=== PATIENT | male | born 1940 | race Caucasian/White ===

== ENCOUNTER 2017-02-26 08:50 | Inpatient (IN) ==
[2017-02-17 18:11] LABS: Basophils # (Auto) 0 K/mcL (0.0-0.3); Basophils % (Auto) 0.3 % (0.0-2.0); Eosinophils # (Auto) 0.2 K/mcL (0.0-0.7); Eosinophils % (Auto) 3.5 % (0.0-7.0); Granulocytes % (Auto) 61.8 % (38.0-78.0); Lymphocytes # (Auto) 1.3 K/mcL (1.5-4.8); Lymphocytes % (Auto) 22.1 % (15.5-49.0); Mean Cell Volume 96.3 fL (80.0-100.0); Mean Corpuscular Hemoglobin 32.7 pg (26.0-34.0); Monocytes # (Auto) 0.7 K/mcL (0.1-0.9); Monocytes % (Auto) 12.3 % (1.0-12.0); Platelet Count 197 K/mcL (140-440); RBC 4.87 M/mcL (4.50-5.90); Red Cell Distribution Width 12.7 % (11.5-14.5)
[2017-02-17 18:18] LABS: Appearance,Urine CLEAR; Bilirubin,Urine NEG (NEG); Color,Urine YELLOW; Glucose,Urine (UA) NEGATIVE (NEG); Leukocyte Esterase,Urine NEG /uL (NEG); Nitrate,Urine NEG (NEG); Protein,Urine NEG (NEG); Specific Gravity,Urine 1.021 (1.000-1.035); Urine Blood NEG mg/dL (<0.03); Urobilinogen,Urine NEG (NEG)
[2017-02-17 18:30] LABS: Blood Urea Nitrogen 23 mg/dl (8-23)
[~2017-02-26 08:50] MED LIST: ACETAMINOPHEN 500 MG TABLET PO SCH; CELECOXIB 200 MG CAPSULE PO SCH; PREGABALIN 75 MG CAPSULE PO SCH; ceFAZolin 1 GM VIAL IV SCH
[2017-02-26] MEDS ORDERED: LIDOCAINE HCL/PF 100 MG/5 ML SYRINGE IV ONE (12:05)
[2017-02-26] MEDS ORDERED: fentaNYL 250 MCG/5 ML VIAL IV ONE (12:05)
[2017-02-26] MEDS ORDERED: ROPIVACAINE HCL/PF 20 ML VIAL IJ ONE (12:05)
[2017-02-26] MEDS ORDERED: KETAMINE 100 MG/ML ML IV ONE (12:05)
[2017-02-26] MEDS ORDERED: ONDANSETRON 4 MG/2 ML VIAL IV ONE (12:05)
[2017-02-26] MEDS ORDERED: MIDAZOLAM 2 MG/2 ML VIAL IV ONE (12:05)
[2017-02-26] MEDS ORDERED: DEXAMETHASONE 10 MG/ML VIAL IV ONE (12:05)
[2017-02-26] MEDS ORDERED: TRANEXAMIC ACID 1,000 MG/10 ML VIAL IV ONE ×2 (12:05→13:42)
[2017-02-26] MEDS ORDERED: GENTAMICIN SULFATE 800 MG/20 ML VIAL IR ONE (12:39)
[2017-02-26] MEDS ORDERED: HYDROmorphone 2 MG/ML SYRINGE IV PRN ×2 (13:24→13:42)
[2017-02-26] MEDS ORDERED: fentaNYL 100 MCG/2 ML VIAL IV PRN (13:24)
[2017-02-26] MEDS ORDERED: BENZOCAINE/MENTHOL 1 LOZENGE PO PRN ×2 (13:24→13:42)
[2017-02-26] MEDS ORDERED: ePHEDrine 50 MG/ML AMPUL IV PRN (13:24)
[2017-02-26] MEDS ORDERED: ONDANSETRON 4 MG/2 ML VIAL IV PRN ×2 (13:24→13:42)
[2017-02-26] MEDS ORDERED: FLUMAZENIL 0.1 MG/ML ML IV PRN (13:24)
[2017-02-26] MEDS ORDERED: MEPERIDINE 50 MG/ML SYRINGE IM PRN (13:24)
[2017-02-26] MEDS ORDERED: METHOCARBAMOL 1,000 MG/10 ML VIAL IV PRN (13:24)
[2017-02-26] MEDS ORDERED: PROMETHAZINE 25 MG/ML VIAL IM PRN (13:24)
[2017-02-26] MEDS ORDERED: IPRATROPIUM/ALBUTEROL 3 ML AMPUL.NEB NEB PRN (13:24)
[2017-02-26] MEDS ORDERED: PROMETHAZINE 25 MG/ML VIAL IV PRN (13:24)
[2017-02-26] MEDS ORDERED: MEPERIDINE 25 MG/ML SYRINGE IV PRN (13:24)
[2017-02-26] MEDS ORDERED: diphenhydrAMINE 50 MG/ML VIAL IV PRN (13:24)
[2017-02-26] MEDS ORDERED: LACTATED RINGERS 250 ML IV PRN (13:24)
[2017-02-26] MEDS ORDERED: NALOXONE HCL 0.4 MG/ML VIAL IV PRN (13:24)
[2017-02-26] MEDS ORDERED: LACTATED RINGERS 1,000 ML IV SCH (13:30)
[2017-02-26] MEDS ORDERED: POLYETHYLENE GLYCOL 3350 17 GM PACKET PO PRN (13:42)
[2017-02-26] MEDS ORDERED: BISACODYL 10 MG SUPP.RECT PR PRN (13:42)
[2017-02-26] MEDS ORDERED: ONDANSETRON ODT 4 MG TABLET SL PRN (13:42)
[2017-02-26] MEDS ORDERED: TEMAZEPAM 15 MG CAPSULE PO PRN (13:42)
[2017-02-26] MEDS ORDERED: FLEETS ADULT ENEMA PR PRN (13:42)
[2017-02-26] MEDS ORDERED: HYDROcodone/APAP 10/325MG TABLET PO PRN (13:42)
[2017-02-26] MEDS ORDERED: KETOROLAC 15 MG/ML VIAL IV PRN (13:42)
[2017-02-26] MEDS ORDERED: ACETAMINOPHEN 325 MG TABLET PO PRN (13:42)
[2017-02-26] MEDS ORDERED: MAGNESIUM HYDROXIDE 30 ML ORAL.SUSP PO PRN (13:42)
--- NOTE | 2017-02-26 13:42 | Brief Operative Note ---
Date of procedure: 02/26/17 Pre-op diagnosis: left shoulder severe djd and bicep tendonopathy Post-op diagnosis: same Procedure: left reverse tsa with bicep tenodesis Grafts/Implants: Yes Anesthesia: GETA Complications Description: 02/26/17 13:41 none Surgeon: Ulisses Silvestre Plan Examiner: Addison Colbert Estimated blood loss (cc): 60 Specimens Removed/Pathology: none sent Condition: stable Disposition: PACU
--- NOTE | 2017-02-26 15:01 | XRay Report ---
HISTORY: Reason for Exam:Post-Op Total Shoulder FINDINGS: There is a well-positioned reverse total shoulder prosthesis. No fracture is present. Arthritis is seen at the acromioclavicular joint. There is mild consolidation of lung parenchyma adjacent left diaphragm which may be atelectasis. IMPRESSION: Well-positioned left shoulder prosthesis Interpreted and Authenticated by: Sidney Smith 02/26/17
[2017-02-26] MEDS: 0.9 % SODIUM CHLORIDE 10 ML SYRINGE IV SCH (15:03)
--- NOTE | 2017-02-26 15:06 | Operative Note ---
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 PROCEDURE: Left reverse total shoulder with biceps tenodesis. SURGEON: Ulisses Silvestre M.D. INSURANCE CLERK: Addison Colbert PA-C. ANESTHESIA: General LMA anesthesia. COMPLICATIONS: None. DESCRIPTION OF PROCEDURE: The patient was brought to the operating room and put to sleep with general LMA anesthesia. Once asleep, the patient had the left arm sterilely prepped and draped in the usual sterile fashion. We confirmed this as the operative site. Preop antibiotics given. Tranexamic acid had been given. Once this was done, the patient had Ioban placed over the skin, and we made a deltopectoral approach on the left shoulder. The patient tolerated this well without complication. We then retracted the deltoid laterally with the cephalic vein. The patient was able to get good exposure. I did release the biceps tendon sheath. The patient then had this repaired to the pectoralis major with two [id number] sutures of #2 Ethibond. We then released the subscap medial to the lesser tuberosity soft tissue, and this was tagged and retracted medially. We then dislocated the humeral head and then released the capsule inferiorly to the humeral head and removed spurs. Once this was done, we then released the capsule up to about the 7 o'clock position. Once done, we then made our neck cut at the anatomical neck position. The patient then had this bony fragment removed. His humeral head was very large. Some of the cuff was still intact superiorly. We then subluxed the humerus posteriorly, performed a 360 degree capsule release around the glenoid, placed a pin centrally at a 10-degree inclination. This was reamed down to size. We irrigated thoroughly and then reamed up for a 40 glenosphere. The baseplate was placed with a central screw measuring 36 mm. Superior screw was 32. Inferior screw was 32, and the anterior superior screw was 40. All had excellent purchase. We then placed a 40 mm glenosphere with 6 mm of offset and 2 mm of eccentricity which was placed inferiorly and anteriorly. Once done, we then irrigated thoroughly and then prepared the humerus. This was reamed up to a size 14, trialed the 14 stem with a 4 mm poly. It was slightly loose. We then implanted a 14 stem with a size 6 mm poly, and this reduced very nicely with 1 mm of play with a shuck test. We irrigated thoroughly. We did not re-place the subscap because it would have been too tight. We released the anterior capsule from the subscap for better motion. We then irrigated thoroughly and then closed the deltopectoral interval with 2-0 vi, closed the skin with 2-0 Vicryl and adhesive closure. Sterile bandage was applied. A Donjoy sling fitted and given. RBH:radha Job ID: [id number] Doc ID: [id number] Ulisses Silvestre MD
[2017-02-26] MEDS: 0.45 % SODIUM CHLORIDE 1,000 ML IV SCH ×2 (15:08→23:53)
[2017-02-26] MEDS: DOCUSATE SODIUM 100 MG CAPSULE PO SCH (19:36)
[2017-02-26] MEDS: ceFAZolin 1 GM VIAL IV SCH (19:36)
[2017-02-26] MEDS ORDERED: SENNOSIDES 1 TABLET PO SCH (21:00)
[2017-02-27] MEDS: 0.9 % SODIUM CHLORIDE 10 ML SYRINGE IV SCH ×2 (00:48→05:37)
[2017-02-27] MEDS: ceFAZolin 1 GM VIAL IV SCH (04:44)
--- NOTE | 2017-02-27 07:41 | Orthopedic Progress Note ---
Subjective Patient information: Note initiated : 02/27/17 at 7:40 am Service Date, if different from initiated Date: [] Patient: Nolberto Sethi 76 y/o M admitted on 02/26/17 for Left Reverse Total Shoulder Arthroplasty with. Chief Complaint: [Pt is stable this morning on post operative day 1 without any significant concerns or complaints. Patients vital signs have remained stable. Patients dressing is dry and exhibits a grossly intact neurovascular and neuromotor exam. Patients 10 point ROS is otherwise negative. ] Objective Vital signs: Vital Signs Temp Pulse Pulse Resp BP BP Pulse Ox 02/27/17 07:32 91 H 94 02/27/17 03:00 98.4 F 88 20 138/80 94 02/27/17 00:00 98.3 F 96 H 20 134/79 92 02/26/17 20:00 97.9 F 101 H 20 130/81 94 02/26/17 16:57 97.8 F 18 163/93 95 02/26/17 16:27 152/92 94 02/26/17 16:13 150/57 97 02/26/17 15:57 157/98 95 02/26/17 15:42 150/99 95 02/26/17 15:28 132/88 94 02/26/17 15:13 144/86 94 02/26/17 14:57 156/83 93 02/26/17 14:39 97.6 F 64 15 140/87 94 02/26/17 14:26 64 16 138/78 96 02/26/17 14:20 64 14 117/72 97 02/26/17 14:14 65 13 109/71 97 02/26/17 14:10 63 12 121/72 97 02/26/17 14:05 63 13 119/75 97 02/26/17 13:59 97.6 F 63 16 105/76 96 02/26/17 09:13 96.7 F L 20 153/91 96 Intake and Output 02/26/17 02/27/17 02/27/17 21:59 05:59 13:59 Intake Total 684 / 684 1650 / 1650 Output Total 1270 / 1270 250 / 250 Balance -586 / -586 1400 / 1400 Intake: IV 1000 / 1000 Sodium Chloride 0.45% 1,000 ml 1000 / 1000 @ 100 mls/hr IV .Q10H [facility] Rx#: [id number] Oral 684 / 684 650 / 650 Output: Urine Catheter Amount 350 / 350 Void Amount 920 / 920 250 / 250 Other: Meal sandwich Percent of Meal Consumed 100% Feeding Ability Independent # Voids 1 Weight 227 lb 8 oz Intake & Output: Intake & Output 02/26/17 02/27/17 02/27/17 21:59 05:59 13:59 Intake Total 684 / 684 1650 / 1650 Output Total 1270 / 1270 250 / 250 Balance -586 / -586 1400 / 1400 Weight 227 lb 8 oz Intake: IV 1000 / 1000 Sodium Chloride 0.45% 1,000 ml 1000 / 1000 @ 100 mls/hr IV .Q10H [facility] Rx#: [id number] Oral 684 / 684 650 / 650 Output: Urine Catheter Amount 350 / 350 Void Amount 920 / 920 250 / 250 Other: Meal sandwich Percent of Meal Consumed 100% Feeding Ability Independent # Voids 1 Incision: Yes healing Incision clean and dry: Yes Dressing: Yes clean, Yes dry Weight bearing status: partial Neurological exam IM: Yes motor sensory intact, Yes neurovascular intact Extremities exam IM: Yes neurovascular intact - Labs CBC & BMP: 02/17/17 16:05 02/17/17 16:05 Labs: Orthopedic Labs 02/17/17 16:05 PT 13.9 INR 1.0 APTT 34 02/17/17 16:05 Hgb 15.9 Hct 46.9 Assessment and Plan (1) Hx of total shoulder replacement The patient has been educated regarding dressing care, Physical Therapy recommendations, home exercises, restrictions, and follow up appointments. The patient has had all necessary DME prescribed. The patient has remained stable during their hospital course. The patient was discharge with a stable exam. Status: Acute
--- NOTE | 2017-02-27 07:45 | Discharge Summary ---
Ortho Discharge - TSA - Patient Instructions Diet: Regular Diet Activity: activity as tolerated, weight bearing as tolerated Total Shoulder Protocol: Leave immobilizer in place except for bathing and ROM. Abduction pillow. Continue to wear sling until seen by physician. Codman Pendulum : These exercises use momentum produced by your body to move your shoulder joint. Bend your knees and shift your weight to your front leg, then back, allowing your arm to swing in the same directions. Using the same technique, alternately shift your weight between your right and left legs, allowing your arm to swing from side to side. These exercises are also performed in counterclockwise and clockwise circular motions. Typically these exercises are performed several times per day, for a set number repetitions or minutes, such as 20 times in a row or 5 minutes at a time. Dressing Care: May shower in 2 days - Problem Maintenance (1) Hx of total shoulder replacement Status: Acute - Follow Up Plan Disposition: Home, Self-Care Prognosis: Good Rehab Potential: Good I certify that the patient requires SNF services: No Overall status at discharge: patient is progressing back to baseline - Orders For Discharge Prescriptions: Docusate Sodium [Colace] 100 mg PO BID #60 cap Nabumetone [Relafen] 500 mg PO BIDCC #60 tab traMADol [Ultram] 50 - 100 mg PO Q4-6HP PRN #75 tab PRN Reason: Pain
[2017-02-27] MEDS: DOCUSATE SODIUM 100 MG CAPSULE PO SCH (08:52)
[2017-02-27] MEDS ORDERED: amLODIPine 5 MG TABLET PO SCH (09:00)
[2017-02-27] MEDS ORDERED: HYDROCHLOROTHIAZIDE 25 MG TABLET PO SCH (09:00)
[2017-02-27] MEDS ORDERED: VITAMIN D3 1,000 UNIT TABLET PO SCH (09:00)
[2017-02-27] MEDS ORDERED: LOSARTAN 50 MG TABLET PO SCH (09:00)
== END 2017-02-27 10:05 | disposition home or self-care (01) | DRG 483 ==
LOC: MEDSUR 08:50
PROVIDERS: ADMIT Orthopaedic Surgery; ATTEND Orthopaedic Surgery